=== PATIENT | male | born 1980 | race Asian ===

== ENCOUNTER 2021-04-09 02:09 | Emergency (ER) | payer OTHER ==
[~2021-04-09] VITALS: Ht 175.3 cm; Wt 100.0 kg
[2021-04-09] MEDS ORDERED: FAMOTIDINE 20MG/2ML VIAL IV ONE (02:45)
[2021-04-09] MEDS ORDERED: DEXAMETHASONE 10 MG/ML VIAL IV ONE (02:45)
[2021-04-09] MEDS ORDERED: B50 MT (05:43)
[2021-04-09] MEDS ORDERED: PRED10TA23 MT (05:43)
[2021-04-09 06:16] VITALS: BP 95/63
== END 2021-04-09 06:34 | disposition home or self-care (01) ==
LOC: ER 02:52
DX: T78.2XXA Anaphylactic shock, unspecified, initial encounter (principal); E11.9 Type 2 diabetes mellitus without complications; Z88.0 Allergy status to penicillin
CPT/HCPCS: 71045; 96374; 96375; 99291; J1100; J3490; 99284